=== PATIENT | male | born 1945 | race Hispanic/Latino ===

== ENCOUNTER 2017-06-10 12:35 | Emergency (ER) | payer MEDICARE ==
[~2017-06-10] VITALS: Ht 177.8 cm; Wt 102.1 kg
--- NOTE | 2017-06-10 15:00 | Diagnostic Imaging Report ---
Exam: Head CT without contrast History: Dizziness, lightheadedness Comparison studies: None Technique: Axial images were obtained from the skull base to the vertex. Coronal and sagittal images reconstructed from the axial data. Intravenous contrast: None Findings: Scalp: No abnormalities. Bones: No fractures, blastic or lytic lesions. Brain sulci: Mildly prominent but age appropriate. Ventricles: Normal in size and configuration. No hydrocephalus. Extra-axial spaces: No masses, no fluid collection. Parenchyma: No mass, acute hemorrhage or acute cortical vascular insults. Questionable subtle hypodensity in the right jose guadalupe may may be artifactual or represent nonhemorrhagic age-indeterminate lacunar insult. A few scattered hypodensities in the supratentorial white matter are nonspecific but most compatible with chronic small vessel ischemic changes. Sellar/suprasellar region: No abnormalities. Craniocervical junction: Patent foramen magnum. No Chiari one malformation. IMPRESSION: 1. Age-indeterminate lacunar insult versus artifact in the right paramedian jose guadalupe. 2. Mild supratentorial chronic microvascular ischemic changes. 3. No additional intracranial abnormalities. Signed by: Dr. Matt Bradley M.D. on 06/10/2017 2:57 PM
[2017-06-10 15:26] LABS: BASOPHILS % 0.5 % (0.0-1.0); EOSINOPHILS % 0.5 % (0.0-6.0); HEMATOCRIT 48.8 % (38.2-49.6); HEMOGLOBIN 16.7 g/dL (14.0-18.0); LYMPHOCYTES # (AUTO) 1.4 (1.0-3.2); LYMPHOCYTES % 15.9 % (18.0-39.1); MEAN CORPUSCULAR HEMOGLOBIN 32.2 pg (28-32); MEAN CORPUSCULAR HGB CONC 34.2 g/dL (31-35); MONOCYTES # (AUTO) 0.7 (0.2-0.8); MONOCYTES % 8.3 % (4.4-11.3); NEUTROPHILS # (AUTO) 6.5 (2.1-6.9); NEUTROPHILS % 74.5 % (38.7-80.0); PLATELET COUNT 209 x10e3/uL (140-360); RED BLOOD COUNT 5.19 x10e6/uL (4.3-5.7); RED CELL DISTRIBUTION WIDTH 12.5 % (11.7-14.4)
[2017-06-10 15:32] LABS: INR 0.92; PROTHROMBIN TIME 12.8 seconds (11.9-14.5)
--- NOTE | 2017-06-10 15:32 | Diagnostic Imaging Report ---
PROCEDURE: Frontal and lateral views of the chest. COMPARISON: None. INDICATIONS: LIGHT HEADED, WEAKNESS FINDINGS: Lines/tubes: None. Lungs: The lungs are well inflated and clear. There is no evidence of pneumonia or pulmonary edema. Pleura: There is no pleural effusion or pneumothorax. Heart and mediastinum: The heart and the mediastinum are normal. Bones: No acute bony abnormality. IMPRESSION: 1. No acute cardiopulmonary disease. Dictated by: Geoffrey Keyes M.D. on 06/10/2017 at 15:41 Electronically approved by: Geoffrey Keyes M.D. on 06/10/2017 at 15:41
[2017-06-10 15:33] LABS: PARTIAL THROMBOPLASTIN TIME 25.3 seconds (23.8-35.5)
[2017-06-10 15:43] LABS: ALANINE AMINOTRANSFERASE 53 IU/L (0-55); ALBUMIN 4.3 g/dL (3.5-5.0); ALBUMIN/GLOBULIN RATIO 0.9 (0.8-2.0); ALKALINE PHOSPHATASE 58 IU/L (40-150); ANION GAP 13.8 mmol/L (8-16); BLOOD UREA NITROGEN 11 mg/dL (7-26); BUN/CREATININE RATIO 13 (6-25); CALCIUM 9.5 mg/dL (8.4-10.2); CARBON DIOXIDE 23 mmol/L (22-29); CHLORIDE 107 mmol/L (98-107); CREATINE KINASE 65 IU/L (30-200); CREATININE, SERUM 0.86 mg/dL (0.72-1.25); EST GLOMERULAR FILTRATION RATE > 60 ML/MIN (60-); GLUCOSE 135 mg/dL (74-118); POTASSIUM 3.8 mmol/L (3.5-5.1); SODIUM 140 mmol/L (136-145)
[2017-06-10 15:49] LABS: TROPONIN I 0.008 ng/mL (0-0.300)
[2017-06-10] MEDS ORDERED: SODIUM CHLORIDE 0.9% 1000ML 1,000 ML ONE (19:34)
== END 2017-06-10 19:30 | disposition home or self-care (01) ==
LOC: ER 12:35
DX: R42 Dizziness and giddiness (principal); R11.0 Nausea; I10 Essential (primary) hypertension
CPT/HCPCS: 36415; 70450; 71020; 80053; 82550; 82553; 84484; 85025; 85610; 85730; 93005; 99284; J7030